=== PATIENT | female | born 1955 | race Caucasian/White ===

== ENCOUNTER 2018-10-10 12:03 | Inpatient (IN) | payer BC ==
[2018-10-10 13:07] LABS: ADD MAN DIFF? NO
[2018-10-10] MEDS: morphine 4 MG/ML VIAL IV (13:07)
[2018-10-10] MEDS: ONDANSETRON 4 MG INJ IV (13:07)
[2018-10-10 13:24] LABS: WHITE BLOOD COUNT 13.1 10^3/ul (4.8-10.8)
[2018-10-10 13:24] LABS: BASOPHILS % 0.2 % (0.0-2.0); EOSINOPHILS % 0.2 % (0.0-7.0); HEMATOCRIT 35.8 % (37.0-47.0); HEMOGLOBIN 11.4 g/dl (12.0-16.0); LYMPHOCYTES # 1.7 10^3/ul (0.8-2.9); MEAN CORPUSCULAR HEMOGLOBIN 27.6 pg (29.0-33.0); MEAN CORPUSCULAR HGB CONC 31.8 g/dl (32.0-37.0); MEAN CORPUSCULAR VOLUME 86.7 fl (82.0-101.0); MONOCYTE # 0.8 10^3/ul (0.3-0.9); MONOCYTES % 5.8 % (0.0-11.0); NEUTROPHIL # 10.5 10^3/ul (1.6-7.5); NEUTROPHILS % 80.3 % (39.0-77.0); PLATELET COUNT 336 10^3/UL (140-415); RED BLOOD COUNT 4.13 10^6/ul (4.20-5.40); RED CELL DISTRIBUTION WIDTH 13.8 % (11.5-14.5)
[2018-10-10 13:33] LABS: ALANINE AMINOTRANSFERASE 19 IU/L (13-69); ALBUMIN 3.8 g/dl (3.3-4.9); ALBUMIN/GLOBULIN RATIO 0.79; ALKALINE PHOSPHATASE 86 IU/L (42-121); ANION GAP 9 (5-13); ASPARTATE AMINO TRANSFERASE 40 IU/L (15-46); BILIRUBIN,INDIRECT 0.7 mg/dl (0-1.1); BILIRUBIN,TOTAL 0.7 mg/dl (0.2-1.3); BLOOD UREA NITROGEN 11 mg/dl (7-20); CALCIUM 8.9 mg/dl (8.4-10.2); CARBON DIOXIDE 29 mmol/L (21-31); CHLORIDE 99 mmol/L (97-110); CREATININE 0.62 mg/dl (0.44-1.00); Estimated GFR > 60 mL/min (>60); GLUCOSE 91 mg/dl (70-220); LIPASE 22 U/L (23-300); POTASSIUM 4.9 mmol/L (3.5-5.1); SODIUM 137 mmol/L (135-144); TOTAL PROTEIN 8.6 g/dl (6.1-8.1)
[2018-10-10] MEDS: PIPER-TAZO 3.375 GM IV (PMX) 100 ML IVPB (14:19)
[2018-10-10] MEDS ORDERED: ONDANSETRON 4 MG INJ IV (14:30)
[2018-10-10] MEDS ORDERED: ACETAMINOPHEN 325 MG TAB PO (14:30)
[2018-10-10] MEDS ORDERED: NACL 0.9% 3 ML SYG IV (17:00)
[2018-10-10] MEDS ORDERED: hydrALAzine 20 MG INJ IV (17:00)
[2018-10-10 17:09] LABS: HEMOGLOBIN A1C 5.6 % (0-5.9)
[2018-10-10] MEDS ORDERED: VANCOMYCIN IV PER PHARMACY XX (17:30)
[2018-10-10] MEDS: SOD CHLORIDE 0.9% 1,000 ML IV (17:54)
[2018-10-10 18:38] LABS: CARCINOEMBRYONIC ANTIGEN 1.7 ng/ml (0.0-5.0)
[2018-10-10] MEDS: ACETAMINOPHEN 1000MG/100ML IV 100 ML IVPB (21:05)
[2018-10-10] MEDS: VANCOMYCIN HCL 1.25 GM in SOD CHLORIDE 0.9% 250 ML IVPB ×2 (21:52→22:42)
[2018-10-10] MEDS: MEROPENEM 1 GM/50ML(PMX) 50 ML IVPB (22:00)
[2018-10-11] MEDS: SOD CHLORIDE 0.9% 1,000 ML IV ×3 (02:02→22:34)
[2018-10-11] MEDS: MEROPENEM 1 GM/50ML(PMX) 50 ML IVPB ×3 (05:49→22:34)
[2018-10-11 06:00] LABS: ADD MAN DIFF? NO
[2018-10-11 06:12] LABS: WHITE BLOOD COUNT 10.2 10^3/ul (4.8-10.8)
[2018-10-11 06:12] LABS: BASOPHILS % 0.3 % (0.0-2.0); EOSINOPHILS % 0.3 % (0.0-7.0); HEMATOCRIT 33.3 % (37.0-47.0); HEMOGLOBIN 10.6 g/dl (12.0-16.0); LYMPHOCYTES # 1.2 10^3/ul (0.8-2.9); LYMPHOCYTES % 12.1 % (15.0-51.0); MEAN CORPUSCULAR HGB CONC 31.8 g/dl (32.0-37.0); MEAN CORPUSCULAR VOLUME 84.7 fl (82.0-101.0); MEAN PLATELET VOLUME 9.6 fl (7.4-10.4); MONOCYTE # 0.8 10^3/ul (0.3-0.9); MONOCYTES % 7.5 % (0.0-11.0); NEUTROPHIL # 8.1 10^3/ul (1.6-7.5); NEUTROPHILS % 79.5 % (39.0-77.0); PLATELET COUNT 268 10^3/UL (140-415); RED BLOOD COUNT 3.93 10^6/ul (4.20-5.40)
[2018-10-11 06:23] LABS: INR 1.14; PROTIME 14.7 Sec (11.9-14.9); PT RATIO 1.1
[2018-10-11 06:24] LABS: PARTIAL THROMBOPLASTIN TIME 37.6 Sec (23.0-35.0)
[2018-10-11 06:31] LABS: ALANINE AMINOTRANSFERASE 21 IU/L (13-69); ALBUMIN 2.9 g/dl (3.3-4.9); ALBUMIN/GLOBULIN RATIO 0.78; ALKALINE PHOSPHATASE 78 IU/L (42-121); ANION GAP 8 (5-13); ASPARTATE AMINO TRANSFERASE 16 IU/L (15-46); BILIRUBIN,INDIRECT 0.6 mg/dl (0-1.1); BILIRUBIN,TOTAL 0.6 mg/dl (0.2-1.3); BLOOD UREA NITROGEN 7 mg/dl (7-20); CALCIUM 8.4 mg/dl (8.4-10.2); CARBON DIOXIDE 26 mmol/L (21-31); CHLORIDE 105 mmol/L (97-110); CREATININE 0.55 mg/dl (0.44-1.00); Estimated GFR > 60 mL/min (>60); GLUCOSE 96 mg/dl (70-220); POTASSIUM 3.8 mmol/L (3.5-5.1); SODIUM 139 mmol/L (135-144); TOTAL PROTEIN 6.6 g/dl (6.1-8.1)
[2018-10-11 06:41] LABS: PHOSPHORUS 3.8 mg/dl (2.5-4.9)
[2018-10-11 06:41] LABS: CHOL/HDL RATIO 7.9 RATIO; CHOLESTEROL 127 mg/dl (100-200); HDL CHOLESTEROL 16 mg/dl (35-98); LDL CHOLESTEROL,CALCULATED 90 mg/dl; MAGNESIUM 2.1 mg/dl (1.7-2.5); TRIGLYCERIDES 103 mg/dl (0-149)
[2018-10-11] MEDS: VANCOMYCIN 500 MG (PMX) 100 ML IVPB ×2 (09:20→20:21)
[2018-10-11] MEDS: ENOXAPARIN 40 MG/0.4 ML SYG SC (09:24)
[2018-10-11] MEDS: morphine 2 MG INJ IV ×2 (09:30→20:20)
[2018-10-12] MEDS: KETOROLAC 15 MG INJ IV (01:39)
[2018-10-12] MEDS: MEROPENEM 1 GM/50ML(PMX) 50 ML IVPB ×3 (05:39→21:37)
[2018-10-12 07:52] LABS: ADD MAN DIFF? NO
[2018-10-12 07:54] LABS: BASOPHILS % 0.3 % (0.0-2.0); EOSINOPHILS % 0.4 % (0.0-7.0); HEMOGLOBIN 10.5 g/dl (12.0-16.0); LYMPHOCYTES # 1.2 10^3/ul (0.8-2.9); MEAN CORPUSCULAR HEMOGLOBIN 26.9 pg (29.0-33.0); MEAN CORPUSCULAR HGB CONC 31.8 g/dl (32.0-37.0); MEAN CORPUSCULAR VOLUME 84.6 fl (82.0-101.0); MEAN PLATELET VOLUME 9.3 fl (7.4-10.4); MONOCYTE # 0.7 10^3/ul (0.3-0.9); MONOCYTES % 6.4 % (0.0-11.0); NEUTROPHIL # 8.6 10^3/ul (1.6-7.5); NEUTROPHILS % 81.6 % (39.0-77.0); PLATELET COUNT 305 10^3/UL (140-415)
[2018-10-12 07:54] LABS: WHITE BLOOD COUNT 10.5 10^3/ul (4.8-10.8)
[2018-10-12 09:09] LABS: MAGNESIUM 1.9 mg/dl (1.7-2.5)
[2018-10-12 09:09] LABS: PHOSPHORUS 3.4 mg/dl (2.5-4.9)
[2018-10-12 09:17] LABS: ANION GAP 11 (5-13); BLOOD UREA NITROGEN 8 mg/dl (7-20); CALCIUM 8.7 mg/dl (8.4-10.2); CARBON DIOXIDE 21 mmol/L (21-31); CHLORIDE 106 mmol/L (97-110); CREATININE 0.52 mg/dl (0.44-1.00); Estimated GFR > 60 mL/min (>60); GLUCOSE 71 mg/dl (70-220); POTASSIUM 3.7 mmol/L (3.5-5.1); SODIUM 138 mmol/L (135-144)
[2018-10-12 09:43] LABS: VANCOMYCIN,TROUGH 5.2 ug/ml (10.0-20.0)
[2018-10-12] MEDS: ENOXAPARIN 40 MG/0.4 ML SYG SC (10:04)
[2018-10-12] MEDS: SOD CHLORIDE 0.9% 1,000 ML IV ×3 (10:05→23:03)
[2018-10-12] MEDS: VANCOMYCIN 1 GM 250 ML IVPB (10:20)
[2018-10-12] MEDS: KETOROLAC 30 MG INJ IV (10:28)
[2018-10-13] MEDS: KETOROLAC 30 MG INJ IV (01:35)
[2018-10-13 06:02] LABS: ADD MAN DIFF? NO
[2018-10-13 06:04] LABS: BASOPHILS % 0.4 % (0.0-2.0); EOSINOPHILS # 0.1 10^3/ul (0.0-0.5); EOSINOPHILS % 1.9 % (0.0-7.0); HEMATOCRIT 33.6 % (37.0-47.0); HEMOGLOBIN 10.9 g/dl (12.0-16.0); LYMPHOCYTES # 1.1 10^3/ul (0.8-2.9); LYMPHOCYTES % 20.7 % (15.0-51.0); MEAN CORPUSCULAR HEMOGLOBIN 27.2 pg (29.0-33.0); MEAN CORPUSCULAR HGB CONC 32.4 g/dl (32.0-37.0); MEAN CORPUSCULAR VOLUME 83.8 fl (82.0-101.0); MEAN PLATELET VOLUME 9.4 fl (7.4-10.4); MONOCYTE # 0.4 10^3/ul (0.3-0.9); MONOCYTES % 7.7 % (0.0-11.0); NEUTROPHIL # 3.6 10^3/ul (1.6-7.5); NEUTROPHILS % 68.9 % (39.0-77.0); PLATELET COUNT 313 10^3/UL (140-415); RED BLOOD COUNT 4.01 10^6/ul (4.20-5.40); RED CELL DISTRIBUTION WIDTH 13.7 % (11.5-14.5)
[2018-10-13 06:04] LABS: WHITE BLOOD COUNT 5.2 10^3/ul (4.8-10.8)
[2018-10-13] MEDS: MEROPENEM 1 GM/50ML(PMX) 50 ML IVPB ×3 (06:22→21:44)
[2018-10-13 06:30] LABS: MAGNESIUM 1.8 mg/dl (1.7-2.5)
[2018-10-13 06:30] LABS: PHOSPHORUS 2.6 mg/dl (2.5-4.9)
[2018-10-13 06:33] LABS: ANION GAP 12 (5-13); BLOOD UREA NITROGEN 7 mg/dl (7-20); CALCIUM 8.6 mg/dl (8.4-10.2); CARBON DIOXIDE 21 mmol/L (21-31); CHLORIDE 106 mmol/L (97-110); CREATININE 0.46 mg/dl (0.44-1.00); Estimated GFR > 60 mL/min (>60); GLUCOSE 69 mg/dl (70-220); POTASSIUM 3.6 mmol/L (3.5-5.1); SODIUM 139 mmol/L (135-144)
[2018-10-13] MEDS: D5W-0.45 NACL + KCL 10 MEQ 1,000 ML IV (10:30)
[2018-10-13] MEDS: ENOXAPARIN 40 MG/0.4 ML SYG SC (10:36)
[2018-10-14] MEDS: D5W-0.45 NACL + KCL 10 MEQ 1,000 ML IV ×3 (00:20→12:12)
[2018-10-14 05:37] LABS: ADD MAN DIFF? NO
[2018-10-14 05:39] LABS: WHITE BLOOD COUNT 3.6 10^3/ul (4.8-10.8)
[2018-10-14 05:39] LABS: BASOPHILS % 0.6 % (0.0-2.0); EOSINOPHILS # 0.1 10^3/ul (0.0-0.5); EOSINOPHILS % 2.5 % (0.0-7.0); HEMATOCRIT 33.3 % (37.0-47.0); LYMPHOCYTES # 0.8 10^3/ul (0.8-2.9); LYMPHOCYTES % 21.8 % (15.0-51.0); MEAN CORPUSCULAR HEMOGLOBIN 27.2 pg (29.0-33.0); MEAN CORPUSCULAR VOLUME 82.4 fl (82.0-101.0); MEAN PLATELET VOLUME 9.4 fl (7.4-10.4); MONOCYTE # 0.3 10^3/ul (0.3-0.9); MONOCYTES % 8.6 % (0.0-11.0); NEUTROPHIL # 2.4 10^3/ul (1.6-7.5); NEUTROPHILS % 65.9 % (39.0-77.0); PLATELET COUNT 322 10^3/UL (140-415); RED BLOOD COUNT 4.04 10^6/ul (4.20-5.40); RED CELL DISTRIBUTION WIDTH 13.3 % (11.5-14.5)
[2018-10-14] MEDS: MEROPENEM 1 GM/50ML(PMX) 50 ML IVPB ×3 (05:57→21:36)
[2018-10-14 05:59] LABS: ANION GAP 8 (5-13); BLOOD UREA NITROGEN 5 mg/dl (7-20); CALCIUM 8.7 mg/dl (8.4-10.2); CARBON DIOXIDE 27 mmol/L (21-31); CHLORIDE 103 mmol/L (97-110); CREATININE 0.42 mg/dl (0.44-1.00); Estimated GFR > 60 mL/min (>60); GLUCOSE 120 mg/dl (70-220); POTASSIUM 3.4 mmol/L (3.5-5.1); SODIUM 138 mmol/L (135-144)
[2018-10-14 06:12] LABS: MAGNESIUM 1.7 mg/dl (1.7-2.5)
[2018-10-14 06:12] LABS: PHOSPHORUS 2.5 mg/dl (2.5-4.9)
[2018-10-14] MEDS: ENOXAPARIN 40 MG/0.4 ML SYG SC (08:08)
[2018-10-14] MEDS: KETOROLAC 30 MG INJ IV ×2 (08:09→15:00)
[2018-10-14] MEDS: POTASSIUM CHLORIDE 20 MEQ POWDER FOR ORAL SOLN PO (12:12)
[2018-10-14] MEDS: MAGNESIUM SULFATE 2 GM/50 ML 50 ML IVPB (12:52)
[2018-10-15] MEDS: D5W-0.45 NACL + KCL 10 MEQ 1,000 ML IV ×3 (02:07→20:10)
[2018-10-15] MEDS: MEROPENEM 1 GM/50ML(PMX) 50 ML IVPB ×3 (05:34→21:26)
[2018-10-15] MEDS: KETOROLAC 30 MG INJ IV (05:35)
[2018-10-15 07:44] LABS: HEMOGLOBIN 11.4 g/dl (12.0-16.0); MEAN CORPUSCULAR HEMOGLOBIN 26.6 pg (29.0-33.0); MEAN CORPUSCULAR HGB CONC 32.6 g/dl (32.0-37.0); MEAN CORPUSCULAR VOLUME 81.6 fl (82.0-101.0); MEAN PLATELET VOLUME 9.2 fl (7.4-10.4); PLATELET COUNT 285 10^3/UL (140-415); RED BLOOD COUNT 4.29 10^6/ul (4.20-5.40); RED CELL DISTRIBUTION WIDTH 13.8 % (11.5-14.5)
[2018-10-15 07:44] LABS: WHITE BLOOD COUNT 2.7 10^3/ul (4.8-10.8)
[2018-10-15 07:51] LABS: ADD MAN DIFF? YES; POSITIVE DIFF @See below
[2018-10-15 08:02] LABS: PHOSPHORUS 2.5 mg/dl (2.5-4.9)
[2018-10-15 08:02] LABS: MAGNESIUM 2.3 mg/dl (1.7-2.5)
[2018-10-15 08:07] LABS: ANION GAP 6 (5-13); BLOOD UREA NITROGEN 4 mg/dl (7-20); CALCIUM 8.5 mg/dl (8.4-10.2); CARBON DIOXIDE 30 mmol/L (21-31); CHLORIDE 102 mmol/L (97-110); CREATININE 0.53 mg/dl (0.44-1.00); Estimated GFR > 60 mL/min (>60); GLUCOSE 122 mg/dl (70-220); POTASSIUM 3.9 mmol/L (3.5-5.1); SODIUM 138 mmol/L (135-144)
[2018-10-15] MEDS: ENOXAPARIN 40 MG/0.4 ML SYG SC (09:00)
[2018-10-15 10:15] LABS: BAND NEUTROPHILS % (M) 2 % (0-4); BASOPHILS % (M) 1 % (0-2); EOSINOPHILS % (M) 2 % (0-7); LYMPHOCYTES #M 0.4 10^3/ul (0.8-2.9); LYMPHOCYTES % (M) 18 % (15-51); MONOCYTE #M 0.2 10^3/ul (0.3-0.9); MONOCYTES % (M) 8 % (0-11); PLASMAC%(M) 1 % (0); PLATELET ESTIMATE NORMAL; REACTIVE LYMPHOCYTES% (M) 2 % (0-0); SEG NEUT #M 1.8 10^3/ul (1.6-7.5); SEGMENTED NEUTROPHILS (M) % 66 % (39-77); SMUDGE%M 50 % (0-0)
[2018-10-15] MEDS ORDERED: ATORVASTATIN 20 MG TAB (19:51)
[2018-10-15] MEDS: ATORVASTATIN 20 MG TAB PO (20:07)
[2018-10-16] MEDS: D5W-0.45 NACL + KCL 10 MEQ 1,000 ML IV (01:17)
[2018-10-16] MEDS: MEROPENEM 1 GM/50ML(PMX) 50 ML IVPB ×3 (05:31→22:17)
[2018-10-16 06:16] LABS: ABNORMAL IP MESSAGE 1; HEMATOCRIT 34.8 % (37.0-47.0); MEAN CORPUSCULAR HEMOGLOBIN 26.6 pg (29.0-33.0); MEAN CORPUSCULAR HGB CONC 31.6 g/dl (32.0-37.0); MEAN CORPUSCULAR VOLUME 84.3 fl (82.0-101.0); MEAN PLATELET VOLUME 9.4 fl (7.4-10.4); PLATELET COUNT 314 10^3/UL (140-415); RED BLOOD COUNT 4.13 10^6/ul (4.20-5.40); RED CELL DISTRIBUTION WIDTH 13.9 % (11.5-14.5)
[2018-10-16 06:16] LABS: WHITE BLOOD COUNT 2.3 10^3/ul (4.8-10.8)
[2018-10-16 06:21] LABS: ADD MAN DIFF? YES; POSITIVE DIFF @See below
[2018-10-16 06:55] LABS: MAGNESIUM 2.2 mg/dl (1.7-2.5)
[2018-10-16 07:04] LABS: ANION GAP 5 (5-13); BLOOD UREA NITROGEN 3 mg/dl (7-20); CALCIUM 9.1 mg/dl (8.4-10.2); CARBON DIOXIDE 30 mmol/L (21-31); CHLORIDE 104 mmol/L (97-110); CREATININE 0.49 mg/dl (0.44-1.00); Estimated GFR > 60 mL/min (>60); GLUCOSE 111 mg/dl (70-220); POTASSIUM 4.1 mmol/L (3.5-5.1); SODIUM 139 mmol/L (135-144)
[2018-10-16 08:29] LABS: ANISOCYTOSIS 1+ (0-0); EOSINOPHILS % (M) 1 % (0-7); LYMPHOCYTES % (M) 47 % (15-51); MONOCYTE #M 0.2 10^3/ul (0.3-0.9); MONOCYTES % (M) 12 % (0-11); PLATELET ESTIMATE NORMAL; POLYCHROMASIA 1+ (0-0); REACTIVE LYMPHOCYTES% (M) 2 % (0-0); SEGMENTED NEUTROPHILS (M) % 38 % (39-77); SMUDGE%M 17 % (0-0)
[2018-10-16] MEDS: ENOXAPARIN 40 MG/0.4 ML SYG SC (09:25)
[2018-10-16] MEDS: KETOROLAC 30 MG INJ IV (15:43)
[2018-10-16] MEDS: ATORVASTATIN 20 MG TAB PO (22:17)
[2018-10-17] MEDS: MEROPENEM 1 GM/50ML(PMX) 50 ML IVPB (05:25)
[2018-10-17 06:02] LABS: ADD MAN DIFF? NO
[2018-10-17 06:12] LABS: ABNORMAL IP MESSAGE 1; BASOPHILS % 0.8 % (0.0-2.0); EOSINOPHILS # 0.1 10^3/ul (0.0-0.5); EOSINOPHILS % 4.9 % (0.0-7.0); HEMATOCRIT 35.9 % (37.0-47.0); HEMOGLOBIN 11.4 g/dl (12.0-16.0); LYMPHOCYTES # 1.5 10^3/ul (0.8-2.9); LYMPHOCYTES % 55.6 % (15.0-51.0); MEAN CORPUSCULAR HEMOGLOBIN 26.8 pg (29.0-33.0); MEAN CORPUSCULAR HGB CONC 31.8 g/dl (32.0-37.0); MEAN CORPUSCULAR VOLUME 84.3 fl (82.0-101.0); MEAN PLATELET VOLUME 9.6 fl (7.4-10.4); MONOCYTE # 0.4 10^3/ul (0.3-0.9); MONOCYTES % 14.3 % (0.0-11.0); NEUTROPHIL # 0.6 10^3/ul (1.6-7.5); PLATELET COUNT 318 10^3/UL (140-415); RED BLOOD COUNT 4.26 10^6/ul (4.20-5.40); RED CELL DISTRIBUTION WIDTH 13.8 % (11.5-14.5)
[2018-10-17 06:12] LABS: WHITE BLOOD COUNT 2.7 10^3/ul (4.8-10.8)
[2018-10-17 06:15] LABS: POSITIVE DIFF @See below
[2018-10-17 06:27] LABS: ANION GAP 5 (5-13); BLOOD UREA NITROGEN 5 mg/dl (7-20); CALCIUM 9.1 mg/dl (8.4-10.2); CARBON DIOXIDE 32 mmol/L (21-31); CHLORIDE 103 mmol/L (97-110); CREATININE 0.46 mg/dl (0.44-1.00); Estimated GFR > 60 mL/min (>60); GLUCOSE 93 mg/dl (70-220); POTASSIUM 4.3 mmol/L (3.5-5.1); SODIUM 140 mmol/L (135-144)
[2018-10-17 06:33] LABS: MAGNESIUM 2.2 mg/dl (1.7-2.5)
[2018-10-17 06:33] LABS: PHOSPHORUS 3.4 mg/dl (2.5-4.9)
[2018-10-17] MEDS: ENOXAPARIN 40 MG/0.4 ML SYG SC (08:50)
[2018-10-17] MEDS: metroNIDAZOLE 500 MG/NS (PMX) 100 ML IVPB ×2 (14:07→22:08)
[2018-10-17] MEDS: HYDROCODONE/APAP (7.5/325) TAB NGT (18:47)
[2018-10-17] MEDS: CIPROFLOXACIN 400MG/D5W 200 ML IVPB (21:07)
[2018-10-17] MEDS: ATORVASTATIN 20 MG TAB PO (21:08)
[2018-10-18] MEDS: metroNIDAZOLE 500 MG/NS (PMX) 100 ML IVPB ×3 (05:51→22:11)
[2018-10-18] MEDS: HYDROCODONE/APAP (7.5/325) TAB NGT (05:55)
[2018-10-18] MEDS: ENOXAPARIN 40 MG/0.4 ML SYG SC (09:11)
[2018-10-18] MEDS: CIPROFLOXACIN 400MG/D5W 200 ML IVPB ×2 (09:40→20:43)
[2018-10-18 10:50] LABS: ADD MAN DIFF? NO
[2018-10-18 10:56] LABS: WHITE BLOOD COUNT 6.1 10^3/ul (4.8-10.8)
[2018-10-18 10:56] LABS: BASOPHILS % 0.3 % (0.0-2.0); EOSINOPHILS # 0.1 10^3/ul (0.0-0.5); EOSINOPHILS % 1.2 % (0.0-7.0); HEMATOCRIT 36.7 % (37.0-47.0); HEMOGLOBIN 11.5 g/dl (12.0-16.0); LYMPHOCYTES # 1.5 10^3/ul (0.8-2.9); MEAN CORPUSCULAR HEMOGLOBIN 26.9 pg (29.0-33.0); MEAN CORPUSCULAR HGB CONC 31.3 g/dl (32.0-37.0); MEAN CORPUSCULAR VOLUME 85.9 fl (82.0-101.0); MEAN PLATELET VOLUME 9.3 fl (7.4-10.4); MONOCYTE # 0.4 10^3/ul (0.3-0.9); MONOCYTES % 6.6 % (0.0-11.0); NEUTROPHIL # 4.1 10^3/ul (1.6-7.5); NEUTROPHILS % 67.6 % (39.0-77.0); PLATELET COUNT 336 10^3/UL (140-415); RED BLOOD COUNT 4.27 10^6/ul (4.20-5.40)
[2018-10-18 11:11] LABS: ANION GAP 9 (5-13); BLOOD UREA NITROGEN 8 mg/dl (7-20); CALCIUM 9.4 mg/dl (8.4-10.2); CARBON DIOXIDE 30 mmol/L (21-31); CHLORIDE 97 mmol/L (97-110); CREATININE 0.58 mg/dl (0.44-1.00); Estimated GFR > 60 mL/min (>60); GLUCOSE 147 mg/dl (70-220); POTASSIUM 3.8 mmol/L (3.5-5.1); SODIUM 136 mmol/L (135-144)
[2018-10-18] MEDS: ATORVASTATIN 20 MG TAB PO (20:44)
[2018-10-18] MEDS: ONDANSETRON 4 MG INJ IV (22:39)
[2018-10-19] MEDS: metroNIDAZOLE 500 MG/NS (PMX) 100 ML IVPB ×3 (05:34→21:51)
[2018-10-19 06:22] LABS: ADD MAN DIFF? NO
[2018-10-19 06:26] LABS: BASOPHILS % 0.2 % (0.0-2.0); HEMATOCRIT 36.8 % (37.0-47.0); HEMOGLOBIN 11.9 g/dl (12.0-16.0); LYMPHOCYTES # 0.9 10^3/ul (0.8-2.9); LYMPHOCYTES % 5.2 % (15.0-51.0); MEAN CORPUSCULAR HEMOGLOBIN 26.9 pg (29.0-33.0); MEAN CORPUSCULAR HGB CONC 32.3 g/dl (32.0-37.0); MEAN CORPUSCULAR VOLUME 83.3 fl (82.0-101.0); MEAN PLATELET VOLUME 9.9 fl (7.4-10.4); MONOCYTE # 0.5 10^3/ul (0.3-0.9); NEUTROPHIL # 15.6 10^3/ul (1.6-7.5); PLATELET COUNT 338 10^3/UL (140-415); RED BLOOD COUNT 4.42 10^6/ul (4.20-5.40); RED CELL DISTRIBUTION WIDTH 13.8 % (11.5-14.5)
[2018-10-19 06:26] LABS: WHITE BLOOD COUNT 17.2 10^3/ul (4.8-10.8)
[2018-10-19 06:51] LABS: ANION GAP 12 (5-13); BLOOD UREA NITROGEN 7 mg/dl (7-20); CARBON DIOXIDE 27 mmol/L (21-31); CHLORIDE 101 mmol/L (97-110); CREATININE 0.63 mg/dl (0.44-1.00); Estimated GFR > 60 mL/min (>60); GLUCOSE 119 mg/dl (70-220); POTASSIUM 4.1 mmol/L (3.5-5.1); SODIUM 140 mmol/L (135-144)
[2018-10-19] MEDS: CIPROFLOXACIN 400MG/D5W 200 ML IVPB (09:17)
[2018-10-19] MEDS: ENOXAPARIN 40 MG/0.4 ML SYG SC (09:17)
[2018-10-19] MEDS: SOD CHLORIDE 0.9% 500 ML IV (15:59)
[2018-10-19] MEDS: SOD CHLORIDE 0.9% 1,000 ML IV (17:15)
[2018-10-19] MEDS: CEFEPIME 1GM/50 ML (PMX) 50 ML IVPB (20:17)
[2018-10-19] MEDS: ATORVASTATIN 20 MG TAB PO (20:18)
[2018-10-19] MEDS: VANCOMYCIN HCL 250 MG/5ML POSYG PO (20:23)
[2018-10-20] MEDS: VANCOMYCIN HCL 250 MG/5ML POSYG PO ×4 (00:14→18:29)
[2018-10-20] MEDS: metroNIDAZOLE 500 MG/NS (PMX) 100 ML IVPB ×3 (05:22→21:41)
[2018-10-20] MEDS: SOD CHLORIDE 0.9% 1,000 ML IV ×2 (05:22→17:30)
[2018-10-20 05:30] LABS: ADD MAN DIFF? NO
[2018-10-20 05:35] LABS: WHITE BLOOD COUNT 9.1 10^3/ul (4.8-10.8)
[2018-10-20 05:35] LABS: BASOPHILS % 0.2 % (0.0-2.0); EOSINOPHILS % 0.2 % (0.0-7.0); HEMATOCRIT 30.8 % (37.0-47.0); HEMOGLOBIN 9.8 g/dl (12.0-16.0); LYMPHOCYTES # 1.2 10^3/ul (0.8-2.9); LYMPHOCYTES % 12.9 % (15.0-51.0); MEAN CORPUSCULAR HEMOGLOBIN 26.8 pg (29.0-33.0); MEAN CORPUSCULAR HGB CONC 31.8 g/dl (32.0-37.0); MEAN CORPUSCULAR VOLUME 84.2 fl (82.0-101.0); MEAN PLATELET VOLUME 10.1 fl (7.4-10.4); MONOCYTE # 0.6 10^3/ul (0.3-0.9); MONOCYTES % 6.1 % (0.0-11.0); NEUTROPHIL # 7.3 10^3/ul (1.6-7.5); PLATELET COUNT 257 10^3/UL (140-415); RED BLOOD COUNT 3.66 10^6/ul (4.20-5.40); RED CELL DISTRIBUTION WIDTH 14.3 % (11.5-14.5)
[2018-10-20 05:57] LABS: ANION GAP 7 (5-13); BLOOD UREA NITROGEN 7 mg/dl (7-20); CALCIUM 8.3 mg/dl (8.4-10.2); CARBON DIOXIDE 26 mmol/L (21-31); CHLORIDE 104 mmol/L (97-110); CREATININE 0.54 mg/dl (0.44-1.00); Estimated GFR > 60 mL/min (>60); GLUCOSE 90 mg/dl (70-220); POTASSIUM 3.6 mmol/L (3.5-5.1); SODIUM 137 mmol/L (135-144)
[2018-10-20 06:05] LABS: ALANINE AMINOTRANSFERASE 37 IU/L (13-69); ALKALINE PHOSPHATASE 74 IU/L (42-121); ASPARTATE AMINO TRANSFERASE 55 IU/L (15-46); MAGNESIUM 1.8 mg/dl (1.7-2.5); TRIGLYCERIDES 93 mg/dl (0-149)
[2018-10-20 06:05] LABS: PHOSPHORUS 2.6 mg/dl (2.5-4.9)
[2018-10-20 07:58] LABS: PREALBUMIN 7.9 mg/dl (17.6-36.0)
[2018-10-20] MEDS: CEFEPIME 1GM/50 ML (PMX) 50 ML IVPB ×2 (09:50→20:45)
[2018-10-20] MEDS: ENOXAPARIN 40 MG/0.4 ML SYG SC (09:51)
[2018-10-20] MEDS: ACCU-CHEK XX ×3 (13:00→20:51)
[2018-10-20 15:50] LABS: ALANINE AMINOTRANSFERASE 40 IU/L (13-69); ALBUMIN 2.7 g/dl (3.3-4.9); ALBUMIN/GLOBULIN RATIO 0.79; ALKALINE PHOSPHATASE 85 IU/L (42-121); ANION GAP 4 (5-13); ASPARTATE AMINO TRANSFERASE 65 IU/L (15-46); BILIRUBIN,INDIRECT 0.4 mg/dl (0-1.1); BILIRUBIN,TOTAL 0.4 mg/dl (0.2-1.3); BLOOD UREA NITROGEN 6 mg/dl (7-20); CALCIUM 8.3 mg/dl (8.4-10.2); CARBON DIOXIDE 27 mmol/L (21-31); CHLORIDE 105 mmol/L (97-110); CREATININE 0.47 mg/dl (0.44-1.00); Estimated GFR > 60 mL/min (>60); GLUCOSE 113 mg/dl (70-220); MAGNESIUM 1.8 mg/dl (1.7-2.5); PHOSPHORUS 2.2 mg/dl (2.5-4.9); POTASSIUM 3.4 mmol/L (3.5-5.1); SODIUM 136 mmol/L (135-144); TOTAL PROTEIN 6.1 g/dl (6.1-8.1); TRIGLYCERIDES 120 mg/dl (0-149)
[2018-10-20 15:57] LABS: PREALBUMIN 7.5 mg/dl (17.6-36.0)
[2018-10-20] MEDS ORDERED: TPN 1,000 ML IV (17:00)
[2018-10-20] MEDS: ATORVASTATIN 20 MG TAB PO (20:45)
[2018-10-20] MEDS: TPN 1,000 ML IV (21:57)
[2018-10-21] MEDS: VANCOMYCIN HCL 250 MG/5ML POSYG PO ×5 (00:16→23:12)
[2018-10-21] MEDS: ACCU-CHEK XX ×6 (00:35→23:12)
[2018-10-21] MEDS: metroNIDAZOLE 500 MG/NS (PMX) 100 ML IVPB ×3 (04:55→21:05)
[2018-10-21 05:59] LABS: ADD MAN DIFF? NO
[2018-10-21 06:07] LABS: BASOPHILS % 0.3 % (0.0-2.0); EOSINOPHILS % 0.4 % (0.0-7.0); HEMATOCRIT 31.3 % (37.0-47.0); HEMOGLOBIN 9.9 g/dl (12.0-16.0); LYMPHOCYTES # 1.2 10^3/ul (0.8-2.9); LYMPHOCYTES % 18.1 % (15.0-51.0); MEAN CORPUSCULAR HEMOGLOBIN 26.7 pg (29.0-33.0); MEAN CORPUSCULAR HGB CONC 31.6 g/dl (32.0-37.0); MEAN CORPUSCULAR VOLUME 84.4 fl (82.0-101.0); MEAN PLATELET VOLUME 9.9 fl (7.4-10.4); MONOCYTE # 0.6 10^3/ul (0.3-0.9); MONOCYTES % 8.5 % (0.0-11.0); NEUTROPHIL # 4.9 10^3/ul (1.6-7.5); NEUTROPHILS % 72.4 % (39.0-77.0); PLATELET COUNT 260 10^3/UL (140-415); RED BLOOD COUNT 3.71 10^6/ul (4.20-5.40); RED CELL DISTRIBUTION WIDTH 14.2 % (11.5-14.5)
[2018-10-21 06:07] LABS: WHITE BLOOD COUNT 6.8 10^3/ul (4.8-10.8)
[2018-10-21 06:27] LABS: ANION GAP 5 (5-13); BLOOD UREA NITROGEN 6 mg/dl (7-20); CALCIUM 8.2 mg/dl (8.4-10.2); CARBON DIOXIDE 28 mmol/L (21-31); CHLORIDE 107 mmol/L (97-110); CREATININE 0.41 mg/dl (0.44-1.00); Estimated GFR > 60 mL/min (>60); GLUCOSE 123 mg/dl (70-220); POTASSIUM 3.6 mmol/L (3.5-5.1); SODIUM 140 mmol/L (135-144)
[2018-10-21 06:38] LABS: PHOSPHORUS 2.1 mg/dl (2.5-4.9)
[2018-10-21] MEDS: TPN 1,000 ML IV ×2 (09:03→21:05)
[2018-10-21] MEDS: CEFEPIME 1GM/50 ML (PMX) 50 ML IVPB ×2 (09:03→20:38)
[2018-10-21] MEDS: ENOXAPARIN 40 MG/0.4 ML SYG SC (09:06)
[2018-10-21] MEDS: POTASSIUM PHOSPHATE 15 MM in SOD CHLORIDE 0.9% 250 ML IV (12:28)
[2018-10-21] MEDS: ATORVASTATIN 20 MG TAB PO (20:38)
[2018-10-21] MEDS: ACETAMINOPHEN 325 MG TAB PO (20:39)
[2018-10-22] MEDS: metroNIDAZOLE 500 MG/NS (PMX) 100 ML IVPB ×3 (05:33→21:50)
[2018-10-22] MEDS: VANCOMYCIN HCL 250 MG/5ML POSYG PO ×3 (05:34→17:40)
[2018-10-22] MEDS: ACCU-CHEK XX ×4 (05:34→23:58)
[2018-10-22 05:43] LABS: ADD MAN DIFF? NO
[2018-10-22 05:45] LABS: BASOPHILS % 0.2 % (0.0-2.0); EOSINOPHILS # 0.1 10^3/ul (0.0-0.5); EOSINOPHILS % 1.6 % (0.0-7.0); HEMOGLOBIN 10.3 g/dl (12.0-16.0); LYMPHOCYTES # 1.3 10^3/ul (0.8-2.9); LYMPHOCYTES % 30.6 % (15.0-51.0); MEAN CORPUSCULAR HEMOGLOBIN 26.8 pg (29.0-33.0); MEAN CORPUSCULAR HGB CONC 32.2 g/dl (32.0-37.0); MEAN CORPUSCULAR VOLUME 83.1 fl (82.0-101.0); MEAN PLATELET VOLUME 10.1 fl (7.4-10.4); MONOCYTE # 0.4 10^3/ul (0.3-0.9); MONOCYTES % 8.8 % (0.0-11.0); NEUTROPHIL # 2.5 10^3/ul (1.6-7.5); NEUTROPHILS % 58.6 % (39.0-77.0); PLATELET COUNT 323 10^3/UL (140-415); RED BLOOD COUNT 3.85 10^6/ul (4.20-5.40); RED CELL DISTRIBUTION WIDTH 14.3 % (11.5-14.5)
[2018-10-22 05:45] LABS: WHITE BLOOD COUNT 4.3 10^3/ul (4.8-10.8)
[2018-10-22 06:11] LABS: ANION GAP 4 (5-13); BLOOD UREA NITROGEN 7 mg/dl (7-20); CALCIUM 8.7 mg/dl (8.4-10.2); CARBON DIOXIDE 29 mmol/L (21-31); CHLORIDE 107 mmol/L (97-110); Estimated GFR > 60 mL/min (>60); GLUCOSE 104 mg/dl (70-220); POTASSIUM 3.6 mmol/L (3.5-5.1); SODIUM 140 mmol/L (135-144)
[2018-10-22 06:35] LABS: PHOSPHORUS 3.2 mg/dl (2.5-4.9)
[2018-10-22] MEDS: CEFEPIME 1GM/50 ML (PMX) 50 ML IVPB ×2 (09:23→20:25)
[2018-10-22] MEDS: TPN 1,000 ML IV ×2 (09:23→23:39)
[2018-10-22] MEDS: ENOXAPARIN 40 MG/0.4 ML SYG SC (09:24)
[2018-10-22] MEDS: ACETAMINOPHEN 325 MG TAB PO (15:09)
[2018-10-22] MEDS: POTASSIUM CHLORIDE 20 MEQ /SW 100 ML IVPB (15:30)
[2018-10-22] MEDS: ATORVASTATIN 20 MG TAB PO (20:25)
[2018-10-23] MEDS: VANCOMYCIN HCL 250 MG/5ML POSYG PO ×4 (00:07→17:41)
[2018-10-23] MEDS: ACETAMINOPHEN 325 MG TAB PO (00:12)
[2018-10-23] MEDS: metroNIDAZOLE 500 MG/NS (PMX) 100 ML IVPB ×3 (05:09→22:15)
[2018-10-23] MEDS: ACCU-CHEK XX ×2 (05:24→12:00)
[2018-10-23 06:09] LABS: ADD MAN DIFF? NO
[2018-10-23 06:12] LABS: WHITE BLOOD COUNT 3.9 10^3/ul (4.8-10.8)
[2018-10-23 06:12] LABS: BASOPHILS % 0.8 % (0.0-2.0); EOSINOPHILS # 0.1 10^3/ul (0.0-0.5); HEMATOCRIT 34.1 % (37.0-47.0); HEMOGLOBIN 10.9 g/dl (12.0-16.0); LYMPHOCYTES # 1.5 10^3/ul (0.8-2.9); LYMPHOCYTES % 38.3 % (15.0-51.0); MEAN CORPUSCULAR HEMOGLOBIN 26.4 pg (29.0-33.0); MEAN CORPUSCULAR VOLUME 82.6 fl (82.0-101.0); MONOCYTE # 0.5 10^3/ul (0.3-0.9); NEUTROPHIL # 1.8 10^3/ul (1.6-7.5); NEUTROPHILS % 46.6 % (39.0-77.0); PLATELET COUNT 339 10^3/UL (140-415); RED BLOOD COUNT 4.13 10^6/ul (4.20-5.40); RED CELL DISTRIBUTION WIDTH 14.5 % (11.5-14.5)
[2018-10-23 06:23] LABS: POSITIVE DIFF @See below
[2018-10-23 07:00] LABS: PHOSPHORUS 3.5 mg/dl (2.5-4.9)
[2018-10-23 07:05] LABS: ANION GAP 7 (5-13); BLOOD UREA NITROGEN 10 mg/dl (7-20); CALCIUM 9.1 mg/dl (8.4-10.2); CARBON DIOXIDE 26 mmol/L (21-31); CHLORIDE 106 mmol/L (97-110); CREATININE 0.41 mg/dl (0.44-1.00); Estimated GFR > 60 mL/min (>60); GLUCOSE 117 mg/dl (70-220); SODIUM 139 mmol/L (135-144)
[2018-10-23] MEDS: CEFEPIME 1GM/50 ML (PMX) 50 ML IVPB ×2 (09:50→21:12)
[2018-10-23] MEDS: ENOXAPARIN 40 MG/0.4 ML SYG SC (09:54)
[2018-10-23] MEDS: TPN 1,000 ML IV (12:45)
[2018-10-23] MEDS: ATORVASTATIN 20 MG TAB PO (21:12)
[2018-10-24] MEDS: VANCOMYCIN HCL 250 MG/5ML POSYG PO ×4 (00:03→17:20)
[2018-10-24] MEDS: TPN 1,000 ML IV ×2 (02:14→15:54)
[2018-10-24] MEDS: metroNIDAZOLE 500 MG/NS (PMX) 100 ML IVPB ×3 (06:03→22:32)
[2018-10-24 06:22] LABS: HEMATOCRIT 35.5 % (37.0-47.0); HEMOGLOBIN 11.3 g/dl (12.0-16.0); MEAN CORPUSCULAR HEMOGLOBIN 26.1 pg (29.0-33.0); MEAN CORPUSCULAR HGB CONC 31.8 g/dl (32.0-37.0); MEAN PLATELET VOLUME 10.1 fl (7.4-10.4); PLATELET COUNT 334 10^3/UL (140-415); RED BLOOD COUNT 4.33 10^6/ul (4.20-5.40); RED CELL DISTRIBUTION WIDTH 14.3 % (11.5-14.5)
[2018-10-24 06:22] LABS: WHITE BLOOD COUNT 3.7 10^3/ul (4.8-10.8)
[2018-10-24 06:30] LABS: ADD MAN DIFF? YES; POSITIVE DIFF @See below
[2018-10-24 06:44] LABS: ANION GAP 7 (5-13); BLOOD UREA NITROGEN 13 mg/dl (7-20); CALCIUM 9.3 mg/dl (8.4-10.2); CARBON DIOXIDE 28 mmol/L (21-31); CHLORIDE 105 mmol/L (97-110); CREATININE 0.48 mg/dl (0.44-1.00); Estimated GFR > 60 mL/min (>60); GLUCOSE 112 mg/dl (70-220); POTASSIUM 4.3 mmol/L (3.5-5.1); SODIUM 140 mmol/L (135-144)
[2018-10-24] MEDS: CEFEPIME 1GM/50 ML (PMX) 50 ML IVPB ×2 (08:27→21:12)
[2018-10-24] MEDS: ENOXAPARIN 40 MG/0.4 ML SYG SC (08:28)
[2018-10-24] MEDS: ACETAMINOPHEN 325 MG TAB PO (08:41)
[2018-10-24 09:30] LABS: ANISOCYTOSIS 1+ (0-0); EOSINOPHILS % (M) 2 % (0-7); GIANT THROMBO% (M) 5 % (0-0); LYMPHOCYTES #M 1.7 10^3/ul (0.8-2.9); LYMPHOCYTES % (M) 48 % (15-51); MICROCYTOSIS 1+ (0-0); MONOCYTE #M 0.2 10^3/ul (0.3-0.9); MONOCYTES % (M) 6 % (0-11); PLATELET ESTIMATE NORMAL; POLYCHROMASIA 1+ (0-0); REACTIVE LYMPHOCYTES #M 0.3 10^3/ul (0.0-0.0); REACTIVE LYMPHOCYTES% (M) 9 % (0-0); SEGMENTED NEUTROPHILS (M) % 35 % (39-77); SMUDGE%M 10 % (0-0)
[2018-10-24] MEDS: ACCU-CHEK XX ×2 (11:42)
[2018-10-24] MEDS: FAT EMULSION 20% 250 ML IV (15:54)
[2018-10-24] MEDS: ATORVASTATIN 20 MG TAB PO (21:12)
[2018-10-25] MEDS: VANCOMYCIN HCL 250 MG/5ML POSYG PO ×3 (00:05→12:10)
[2018-10-25] MEDS: TPN 1,000 ML IV ×2 (05:13→18:15)
[2018-10-25] MEDS: metroNIDAZOLE 500 MG/NS (PMX) 100 ML IVPB ×3 (05:23→21:47)
[2018-10-25 06:15] LABS: HEMATOCRIT 36.8 % (37.0-47.0); HEMOGLOBIN 11.6 g/dl (12.0-16.0); MEAN CORPUSCULAR HEMOGLOBIN 26.4 pg (29.0-33.0); MEAN CORPUSCULAR HGB CONC 31.5 g/dl (32.0-37.0); MEAN CORPUSCULAR VOLUME 83.8 fl (82.0-101.0); MEAN PLATELET VOLUME 9.7 fl (7.4-10.4); PLATELET COUNT 344 10^3/UL (140-415); RED BLOOD COUNT 4.39 10^6/ul (4.20-5.40); RED CELL DISTRIBUTION WIDTH 14.3 % (11.5-14.5)
[2018-10-25 06:15] LABS: WHITE BLOOD COUNT 3.9 10^3/ul (4.8-10.8)
[2018-10-25 06:25] LABS: ADD MAN DIFF? YES; POSITIVE DIFF @See below
[2018-10-25 06:50] LABS: PHOSPHORUS 3.9 mg/dl (2.5-4.9)
[2018-10-25 06:51] LABS: ALANINE AMINOTRANSFERASE 32 IU/L (13-69); ALBUMIN 3.6 g/dl (3.3-4.9); ALBUMIN/GLOBULIN RATIO 0.97; ALKALINE PHOSPHATASE 74 IU/L (42-121); ANION GAP 10 (5-13); ASPARTATE AMINO TRANSFERASE 59 IU/L (15-46); BILIRUBIN,INDIRECT 0.3 mg/dl (0-1.1); BILIRUBIN,TOTAL 0.3 mg/dl (0.2-1.3); BLOOD UREA NITROGEN 13 mg/dl (7-20); CALCIUM 9.7 mg/dl (8.4-10.2); CARBON DIOXIDE 24 mmol/L (21-31); CHLORIDE 107 mmol/L (97-110); CREATININE 0.47 mg/dl (0.44-1.00); Estimated GFR > 60 mL/min (>60); GLUCOSE 116 mg/dl (70-220); POTASSIUM 4.5 mmol/L (3.5-5.1); SODIUM 141 mmol/L (135-144); TOTAL PROTEIN 7.3 g/dl (6.1-8.1)
[2018-10-25] MEDS: CEFEPIME 1GM/50 ML (PMX) 50 ML IVPB ×2 (08:56→20:58)
[2018-10-25] MEDS: ACETAMINOPHEN 325 MG TAB PO (08:56)
[2018-10-25] MEDS: ENOXAPARIN 40 MG/0.4 ML SYG SC (08:57)
[2018-10-25 09:33] LABS: ANISOCYTOSIS 1+ (0-0); BAND NEUTROPHILS % (M) 1 % (0-4); BASOPHILS % (M) 1 % (0-2); EOSINOPHILS % (M) 3 % (0-7); LYMPHOCYTES % (M) 28 % (15-51); MONOCYTE #M 0.2 10^3/ul (0.3-0.9); MONOCYTES % (M) 7 % (0-11); PLATELET ESTIMATE NORMAL; SEG NEUT #M 2.3 10^3/ul (1.6-7.5); SEGMENTED NEUTROPHILS (M) % 60 % (39-77); SMUDGE%M 72 % (0-0)
[2018-10-25] MEDS: ACCU-CHEK XX ×2 (12:12)
[2018-10-25] MEDS: FAT EMULSION 20% 250 ML IV (15:38)
[2018-10-25] MEDS: ATORVASTATIN 20 MG TAB PO (21:02)
[2018-10-26] MEDS: ACCU-CHEK XX ×3 (00:04→23:54)
[2018-10-26] MEDS: ACETAMINOPHEN 325 MG TAB PO ×2 (04:19→21:20)
[2018-10-26] MEDS: metroNIDAZOLE 500 MG/NS (PMX) 100 ML IVPB ×3 (06:12→22:14)
[2018-10-26 06:34] LABS: WHITE BLOOD COUNT 4.1 10^3/ul (4.8-10.8)
[2018-10-26 06:34] LABS: HEMATOCRIT 35.7 % (37.0-47.0); HEMOGLOBIN 11.4 g/dl (12.0-16.0); MEAN CORPUSCULAR HEMOGLOBIN 26.6 pg (29.0-33.0); MEAN CORPUSCULAR HGB CONC 31.9 g/dl (32.0-37.0); MEAN CORPUSCULAR VOLUME 83.4 fl (82.0-101.0); MEAN PLATELET VOLUME 9.6 fl (7.4-10.4); PLATELET COUNT 320 10^3/UL (140-415); RED BLOOD COUNT 4.28 10^6/ul (4.20-5.40); RED CELL DISTRIBUTION WIDTH 14.5 % (11.5-14.5)
[2018-10-26 06:48] LABS: ADD MAN DIFF? YES; POSITIVE DIFF @See below
[2018-10-26 07:00] LABS: ALANINE AMINOTRANSFERASE 30 IU/L (13-69); ALBUMIN 3.4 g/dl (3.3-4.9); ALBUMIN/GLOBULIN RATIO 0.87; ALKALINE PHOSPHATASE 75 IU/L (42-121); ANION GAP 9 (5-13); ASPARTATE AMINO TRANSFERASE 43 IU/L (15-46); BILIRUBIN,INDIRECT 0.2 mg/dl (0-1.1); BILIRUBIN,TOTAL 0.2 mg/dl (0.2-1.3); BLOOD UREA NITROGEN 14 mg/dl (7-20); CALCIUM 9.6 mg/dl (8.4-10.2); CARBON DIOXIDE 25 mmol/L (21-31); CHLORIDE 107 mmol/L (97-110); CREATININE 0.54 mg/dl (0.44-1.00); Estimated GFR > 60 mL/min (>60); GLUCOSE 120 mg/dl (70-220); POTASSIUM 4.7 mmol/L (3.5-5.1); SODIUM 141 mmol/L (135-144); TOTAL PROTEIN 7.3 g/dl (6.1-8.1)
[2018-10-26 07:02] LABS: MAGNESIUM 1.9 mg/dl (1.7-2.5)
[2018-10-26 07:02] LABS: PHOSPHORUS 3.9 mg/dl (2.5-4.9)
[2018-10-26] MEDS: TPN 1,000 ML IV ×2 (08:21→22:16)
[2018-10-26] MEDS: CEFEPIME 1GM/50 ML (PMX) 50 ML IVPB ×2 (08:23→21:20)
[2018-10-26] MEDS: ENOXAPARIN 40 MG/0.4 ML SYG SC (08:23)
[2018-10-26 09:59] LABS: ANISOCYTOSIS 1+ (0-0); BAND NEUTROPHILS % (M) 2 % (0-4); BASOPHILS % (M) 2 % (0-2); EOSINOPHILS % (M) 3 % (0-7); ERYTHROBLAST% (NRBC) (M) 1 % (0-0); GIANT THROMBO% (M) 7 % (0-0); LYMPHOCYTES #M 1.1 10^3/ul (0.8-2.9); LYMPHOCYTES % (M) 29 % (15-51); MICROCYTOSIS 1+ (0-0); MONOCYTE #M 0.2 10^3/ul (0.3-0.9); MONOCYTES % (M) 6 % (0-11); PLATELET ESTIMATE NORMAL; POLYCHROMASIA 1+ (0-0); RBC MORPHOLOGY COMMENT @See below; SEG NEUT #M 2.4 10^3/ul (1.6-7.5); SEGMENTED NEUTROPHILS (M) % 58 % (39-77); SMUDGE%M 23 % (0-0); WBC MORPHOLOGY COMMENT @See below
[2018-10-26] MEDS: FAT EMULSION 20% 250 ML IV (16:01)
[2018-10-26] MEDS: ATORVASTATIN 20 MG TAB PO (21:20)
[2018-10-27] MEDS: metroNIDAZOLE 500 MG/NS (PMX) 100 ML IVPB ×3 (05:29→22:25)
[2018-10-27] MEDS: ACETAMINOPHEN 325 MG TAB PO ×3 (05:34→17:46)
[2018-10-27 06:38] LABS: ADD MAN DIFF? NO
[2018-10-27 06:42] LABS: WHITE BLOOD COUNT 4.5 10^3/ul (4.8-10.8)
[2018-10-27 06:42] LABS: BASOPHILS % 0.9 % (0.0-2.0); EOSINOPHILS # 0.1 10^3/ul (0.0-0.5); EOSINOPHILS % 2.6 % (0.0-7.0); HEMATOCRIT 37.2 % (37.0-47.0); LYMPHOCYTES # 1.4 10^3/ul (0.8-2.9); MEAN CORPUSCULAR HEMOGLOBIN 26.5 pg (29.0-33.0); MEAN CORPUSCULAR HGB CONC 32.3 g/dl (32.0-37.0); MEAN CORPUSCULAR VOLUME 82.1 fl (82.0-101.0); MEAN PLATELET VOLUME 9.7 fl (7.4-10.4); MONOCYTE # 0.5 10^3/ul (0.3-0.9); MONOCYTES % 10.8 % (0.0-11.0); NEUTROPHIL # 2.5 10^3/ul (1.6-7.5); NEUTROPHILS % 55.3 % (39.0-77.0); PLATELET COUNT 331 10^3/UL (140-415); RED BLOOD COUNT 4.53 10^6/ul (4.20-5.40); RED CELL DISTRIBUTION WIDTH 14.6 % (11.5-14.5)
[2018-10-27 07:36] LABS: PHOSPHORUS 3.8 mg/dl (2.5-4.9); TRIGLYCERIDES 206 mg/dl (0-149)
[2018-10-27 07:36] LABS: MAGNESIUM 1.9 mg/dl (1.7-2.5)
[2018-10-27 07:42] LABS: ALANINE AMINOTRANSFERASE 29 IU/L (13-69); ALBUMIN 3.5 g/dl (3.3-4.9); ALBUMIN/GLOBULIN RATIO 0.87; ALKALINE PHOSPHATASE 72 IU/L (42-121); ANION GAP 7 (5-13); ASPARTATE AMINO TRANSFERASE 37 IU/L (15-46); BILIRUBIN,INDIRECT 0.2 mg/dl (0-1.1); BILIRUBIN,TOTAL 0.2 mg/dl (0.2-1.3); BLOOD UREA NITROGEN 13 mg/dl (7-20); CALCIUM 9.5 mg/dl (8.4-10.2); CARBON DIOXIDE 26 mmol/L (21-31); CHLORIDE 107 mmol/L (97-110); CREATININE 0.55 mg/dl (0.44-1.00); Estimated GFR > 60 mL/min (>60); GLUCOSE 115 mg/dl (70-220); POTASSIUM 4.3 mmol/L (3.5-5.1); SODIUM 140 mmol/L (135-144); TOTAL PROTEIN 7.5 g/dl (6.1-8.1)
[2018-10-27] MEDS: CEFEPIME 1GM/50 ML (PMX) 50 ML IVPB ×2 (09:04→20:32)
[2018-10-27] MEDS: ENOXAPARIN 40 MG/0.4 ML SYG SC (09:05)
[2018-10-27] MEDS: TPN 1,000 ML IV (11:48)
[2018-10-27] MEDS: ACCU-CHEK XX (11:59)
[2018-10-27] MEDS: FAT EMULSION 20% 250 ML IV (16:34)
[2018-10-27] MEDS: ATORVASTATIN 20 MG TAB PO (20:32)
[2018-10-28] MEDS: ACCU-CHEK XX ×3 (00:52→23:59)
[2018-10-28] MEDS: TPN 1,000 ML IV ×2 (00:53→15:50)
[2018-10-28] MEDS: metroNIDAZOLE 500 MG/NS (PMX) 100 ML IVPB ×3 (05:47→21:40)
[2018-10-28 06:05] LABS: ADD MAN DIFF? NO
[2018-10-28 06:12] LABS: WHITE BLOOD COUNT 3.8 10^3/ul (4.8-10.8)
[2018-10-28 06:12] LABS: BASOPHIL # 0.1 10^3/ul (0.0-0.1); BASOPHILS % 1.3 % (0.0-2.0); EOSINOPHILS # 0.1 10^3/ul (0.0-0.5); EOSINOPHILS % 3.1 % (0.0-7.0); HEMATOCRIT 37.9 % (37.0-47.0); LYMPHOCYTES # 1.4 10^3/ul (0.8-2.9); LYMPHOCYTES % 35.4 % (15.0-51.0); MEAN CORPUSCULAR HGB CONC 31.7 g/dl (32.0-37.0); MEAN CORPUSCULAR VOLUME 82.2 fl (82.0-101.0); MEAN PLATELET VOLUME 10.2 fl (7.4-10.4); MONOCYTE # 0.5 10^3/ul (0.3-0.9); MONOCYTES % 11.8 % (0.0-11.0); NEUTROPHIL # 1.8 10^3/ul (1.6-7.5); NEUTROPHILS % 47.9 % (39.0-77.0); PLATELET COUNT 314 10^3/UL (140-415); RED BLOOD COUNT 4.61 10^6/ul (4.20-5.40); RED CELL DISTRIBUTION WIDTH 14.9 % (11.5-14.5)
[2018-10-28 06:36] LABS: PHOSPHORUS 3.8 mg/dl (2.5-4.9)
[2018-10-28 06:42] LABS: ANION GAP 9 (5-13); BLOOD UREA NITROGEN 13 mg/dl (7-20); CARBON DIOXIDE 28 mmol/L (21-31); CHLORIDE 106 mmol/L (97-110); CREATININE 0.57 mg/dl (0.44-1.00); Estimated GFR > 60 mL/min (>60); GLUCOSE 113 mg/dl (70-220); POTASSIUM 5.2 mmol/L (3.5-5.1); SODIUM 143 mmol/L (135-144)
[2018-10-28] MEDS: CEFEPIME 1GM/50 ML (PMX) 50 ML IVPB ×2 (09:08→20:09)
[2018-10-28] MEDS: ACETAMINOPHEN 325 MG TAB PO ×2 (09:08→15:50)
[2018-10-28] MEDS: ENOXAPARIN 40 MG/0.4 ML SYG SC (09:11)
[2018-10-28] MEDS: FAT EMULSION 20% 250 ML IV (15:50)
[2018-10-28] MEDS: ATORVASTATIN 20 MG TAB PO (20:03)
[2018-10-29] MEDS: TPN 1,000 ML IV ×3 (01:50→19:59)
[2018-10-29] MEDS: metroNIDAZOLE 500 MG/NS (PMX) 100 ML IVPB ×3 (05:37→20:57)
[2018-10-29 06:15] LABS: ADD MAN DIFF? NO
[2018-10-29 06:20] LABS: BASOPHILS % 0.9 % (0.0-2.0); EOSINOPHILS # 0.1 10^3/ul (0.0-0.5); EOSINOPHILS % 2.4 % (0.0-7.0); HEMATOCRIT 35.9 % (37.0-47.0); HEMOGLOBIN 11.5 g/dl (12.0-16.0); LYMPHOCYTES # 1.5 10^3/ul (0.8-2.9); LYMPHOCYTES % 32.4 % (15.0-51.0); MEAN CORPUSCULAR HEMOGLOBIN 26.6 pg (29.0-33.0); MEAN CORPUSCULAR VOLUME 83.1 fl (82.0-101.0); MEAN PLATELET VOLUME 10.4 fl (7.4-10.4); MONOCYTE # 0.4 10^3/ul (0.3-0.9); MONOCYTES % 8.1 % (0.0-11.0); NEUTROPHIL # 2.5 10^3/ul (1.6-7.5); NEUTROPHILS % 55.5 % (39.0-77.0); PLATELET COUNT 280 10^3/UL (140-415); RED BLOOD COUNT 4.32 10^6/ul (4.20-5.40); RED CELL DISTRIBUTION WIDTH 14.7 % (11.5-14.5)
[2018-10-29 06:20] LABS: WHITE BLOOD COUNT 4.5 10^3/ul (4.8-10.8)
[2018-10-29 06:55] LABS: ANION GAP 6 (5-13); BLOOD UREA NITROGEN 14 mg/dl (7-20); CALCIUM 9.4 mg/dl (8.4-10.2); CARBON DIOXIDE 25 mmol/L (21-31); CHLORIDE 109 mmol/L (97-110); Estimated GFR > 60 mL/min (>60); GLUCOSE 104 mg/dl (70-220); POTASSIUM 4.4 mmol/L (3.5-5.1); SODIUM 140 mmol/L (135-144)
[2018-10-29 06:58] LABS: MAGNESIUM 1.8 mg/dl (1.7-2.5)
[2018-10-29 06:58] LABS: PHOSPHORUS 3.8 mg/dl (2.5-4.9)
[2018-10-29] MEDS: CEFEPIME 1GM/50 ML (PMX) 50 ML IVPB ×2 (08:09→20:00)
[2018-10-29] MEDS: ENOXAPARIN 40 MG/0.4 ML SYG SC (08:11)
[2018-10-29] MEDS: ACCU-CHEK XX (12:00)
[2018-10-29] MEDS: FAT EMULSION 20% 250 ML IV (16:31)
[2018-10-29] MEDS: ATORVASTATIN 20 MG TAB PO (20:00)
[2018-10-30] MEDS: ACCU-CHEK XX ×2 (00:47→12:00)
[2018-10-30] MEDS: metroNIDAZOLE 500 MG/NS (PMX) 100 ML IVPB ×3 (05:22→21:57)
[2018-10-30 06:22] LABS: ADD MAN DIFF? NO
[2018-10-30 06:34] LABS: BASOPHILS % 0.8 % (0.0-2.0); EOSINOPHILS # 0.1 10^3/ul (0.0-0.5); EOSINOPHILS % 3.1 % (0.0-7.0); HEMATOCRIT 34.5 % (37.0-47.0); HEMOGLOBIN 11.4 g/dl (12.0-16.0); LYMPHOCYTES # 1.3 10^3/ul (0.8-2.9); LYMPHOCYTES % 37.3 % (15.0-51.0); MEAN CORPUSCULAR HEMOGLOBIN 26.9 pg (29.0-33.0); MEAN CORPUSCULAR VOLUME 81.4 fl (82.0-101.0); MEAN PLATELET VOLUME 10.3 fl (7.4-10.4); MONOCYTE # 0.4 10^3/ul (0.3-0.9); MONOCYTES % 10.4 % (0.0-11.0); NEUTROPHIL # 1.7 10^3/ul (1.6-7.5); NEUTROPHILS % 48.1 % (39.0-77.0); PLATELET COUNT 233 10^3/UL (140-415); RED BLOOD COUNT 4.24 10^6/ul (4.20-5.40); RED CELL DISTRIBUTION WIDTH 15.1 % (11.5-14.5)
[2018-10-30 06:34] LABS: WHITE BLOOD COUNT 3.6 10^3/ul (4.8-10.8)
[2018-10-30 07:09] LABS: ANION GAP 8 (5-13); BLOOD UREA NITROGEN 12 mg/dl (7-20); CALCIUM 9.2 mg/dl (8.4-10.2); CARBON DIOXIDE 23 mmol/L (21-31); CHLORIDE 110 mmol/L (97-110); CREATININE 0.45 mg/dl (0.44-1.00); Estimated GFR > 60 mL/min (>60); GLUCOSE 116 mg/dl (70-220); POTASSIUM 3.9 mmol/L (3.5-5.1); SODIUM 141 mmol/L (135-144)
[2018-10-30 07:17] LABS: PHOSPHORUS 3.9 mg/dl (2.5-4.9)
[2018-10-30 07:17] LABS: MAGNESIUM 1.7 mg/dl (1.7-2.5)
[2018-10-30] MEDS: CEFEPIME 1GM/50 ML (PMX) 50 ML IVPB ×2 (08:24→20:44)
[2018-10-30] MEDS: ENOXAPARIN 40 MG/0.4 ML SYG SC (08:25)
[2018-10-30] MEDS: ACETAMINOPHEN 325 MG TAB PO ×3 (08:35→22:44)
[2018-10-30] MEDS: TPN 1,000 ML IV (12:31)
[2018-10-30] MEDS: FAT EMULSION 20% 250 ML IV (16:28)
[2018-10-30] MEDS: ATORVASTATIN 20 MG TAB PO (20:44)
[2018-10-31] MEDS: TPN 1,000 ML IV ×2 (02:09→18:02)
[2018-10-31] MEDS: metroNIDAZOLE 500 MG/NS (PMX) 100 ML IVPB ×3 (06:02→22:09)
[2018-10-31 08:41] LABS: ADD MAN DIFF? NO
[2018-10-31 08:44] LABS: BASOPHILS % 0.8 % (0.0-2.0); EOSINOPHILS # 0.1 10^3/ul (0.0-0.5); EOSINOPHILS % 2.8 % (0.0-7.0); HEMATOCRIT 34.6 % (37.0-47.0); HEMOGLOBIN 11.5 g/dl (12.0-16.0); LYMPHOCYTES # 1.3 10^3/ul (0.8-2.9); LYMPHOCYTES % 35.5 % (15.0-51.0); MEAN CORPUSCULAR HEMOGLOBIN 27.1 pg (29.0-33.0); MEAN CORPUSCULAR HGB CONC 33.2 g/dl (32.0-37.0); MEAN CORPUSCULAR VOLUME 81.6 fl (82.0-101.0); MEAN PLATELET VOLUME 10.8 fl (7.4-10.4); MONOCYTE # 0.3 10^3/ul (0.3-0.9); MONOCYTES % 8.6 % (0.0-11.0); NEUTROPHIL # 1.9 10^3/ul (1.6-7.5); NEUTROPHILS % 51.7 % (39.0-77.0); PLATELET COUNT 240 10^3/UL (140-415); RED BLOOD COUNT 4.24 10^6/ul (4.20-5.40); RED CELL DISTRIBUTION WIDTH 15.1 % (11.5-14.5)
[2018-10-31 08:44] LABS: WHITE BLOOD COUNT 3.6 10^3/ul (4.8-10.8)
[2018-10-31 09:09] LABS: ALANINE AMINOTRANSFERASE 29 IU/L (13-69); ALBUMIN 3.4 g/dl (3.3-4.9); ALBUMIN/GLOBULIN RATIO 0.87; ALKALINE PHOSPHATASE 72 IU/L (42-121); ANION GAP 10 (5-13); ASPARTATE AMINO TRANSFERASE 37 IU/L (15-46); BILIRUBIN,INDIRECT 0.3 mg/dl (0-1.1); BILIRUBIN,TOTAL 0.3 mg/dl (0.2-1.3); BLOOD UREA NITROGEN 13 mg/dl (7-20); CALCIUM 9.2 mg/dl (8.4-10.2); CARBON DIOXIDE 23 mmol/L (21-31); CHLORIDE 109 mmol/L (97-110); CREATININE 0.44 mg/dl (0.44-1.00); Estimated GFR > 60 mL/min (>60); GLUCOSE 111 mg/dl (70-220); POTASSIUM 3.8 mmol/L (3.5-5.1); SODIUM 142 mmol/L (135-144); TOTAL PROTEIN 7.3 g/dl (6.1-8.1)
[2018-10-31 09:10] LABS: PHOSPHORUS 3.8 mg/dl (2.5-4.9)
[2018-10-31 09:10] LABS: MAGNESIUM 1.7 mg/dl (1.7-2.5)
[2018-10-31] MEDS: ENOXAPARIN 40 MG/0.4 ML SYG SC (11:43)
[2018-10-31] MEDS: CEFEPIME 1GM/50 ML (PMX) 50 ML IVPB ×2 (11:43→20:30)
[2018-10-31] MEDS: ACCU-CHEK XX ×2 (12:00)
[2018-10-31] MEDS: ACETAMINOPHEN 325 MG TAB PO (18:01)
[2018-10-31] MEDS: FAT EMULSION 20% 250 ML IV (18:02)
[2018-10-31] MEDS: ATORVASTATIN 20 MG TAB PO (20:30)
[2018-11-01] MEDS: metroNIDAZOLE 500 MG/NS (PMX) 100 ML IVPB ×3 (06:05→22:08)
[2018-11-01] MEDS: TPN 1,000 ML IV ×2 (07:32→21:20)
[2018-11-01 07:42] LABS: ADD MAN DIFF? NO
[2018-11-01 07:48] LABS: WHITE BLOOD COUNT 3.4 10^3/ul (4.8-10.8)
[2018-11-01 07:48] LABS: BASOPHILS % 1.2 % (0.0-2.0); EOSINOPHILS # 0.2 10^3/ul (0.0-0.5); EOSINOPHILS % 4.4 % (0.0-7.0); HEMATOCRIT 34.7 % (37.0-47.0); HEMOGLOBIN 11.5 g/dl (12.0-16.0); LYMPHOCYTES # 1.4 10^3/ul (0.8-2.9); LYMPHOCYTES % 41.9 % (15.0-51.0); MEAN CORPUSCULAR HEMOGLOBIN 27.1 pg (29.0-33.0); MEAN CORPUSCULAR HGB CONC 33.1 g/dl (32.0-37.0); MEAN CORPUSCULAR VOLUME 81.8 fl (82.0-101.0); MEAN PLATELET VOLUME 11.1 fl (7.4-10.4); MONOCYTE # 0.3 10^3/ul (0.3-0.9); NEUTROPHIL # 1.5 10^3/ul (1.6-7.5); NEUTROPHILS % 44.2 % (39.0-77.0); PLATELET COUNT 225 10^3/UL (140-415); RED BLOOD COUNT 4.24 10^6/ul (4.20-5.40); RED CELL DISTRIBUTION WIDTH 15.3 % (11.5-14.5)
[2018-11-01 08:06] LABS: PHOSPHORUS 3.7 mg/dl (2.5-4.9)
[2018-11-01 08:06] LABS: MAGNESIUM 1.7 mg/dl (1.7-2.5)
[2018-11-01 08:15] LABS: ALANINE AMINOTRANSFERASE 24 IU/L (13-69); ALBUMIN 3.4 g/dl (3.3-4.9); ALBUMIN/GLOBULIN RATIO 0.89; ALKALINE PHOSPHATASE 70 IU/L (42-121); ANION GAP 10 (5-13); ASPARTATE AMINO TRANSFERASE 29 IU/L (15-46); BILIRUBIN,INDIRECT 0.4 mg/dl (0-1.1); BILIRUBIN,TOTAL 0.4 mg/dl (0.2-1.3); BLOOD UREA NITROGEN 12 mg/dl (7-20); CALCIUM 9.2 mg/dl (8.4-10.2); CARBON DIOXIDE 23 mmol/L (21-31); CHLORIDE 109 mmol/L (97-110); CREATININE 0.45 mg/dl (0.44-1.00); Estimated GFR > 60 mL/min (>60); GLUCOSE 110 mg/dl (70-220); POTASSIUM 3.8 mmol/L (3.5-5.1); SODIUM 142 mmol/L (135-144); TOTAL PROTEIN 7.2 g/dl (6.1-8.1)
[2018-11-01] MEDS: CEFEPIME 1GM/50 ML (PMX) 50 ML IVPB ×2 (08:40→21:20)
[2018-11-01] MEDS: ENOXAPARIN 40 MG/0.4 ML SYG SC (08:42)
[2018-11-01] MEDS: ACCU-CHEK XX ×2 (11:51)
[2018-11-01] MEDS ORDERED: FAT EMULSION 20% 500 ML IV (16:00)
[2018-11-01] MEDS ORDERED: FAT EMULSION 20% 250 ML IV (16:00)
[2018-11-01] MEDS: FAT EMULSION 20% 500 ML IV (16:30)
[2018-11-01] MEDS: ATORVASTATIN 20 MG TAB PO (21:21)
[2018-11-02] MEDS: metroNIDAZOLE 500 MG/NS (PMX) 100 ML IVPB ×2 (05:52→14:04)
[2018-11-02 06:15] LABS: ADD MAN DIFF? NO
[2018-11-02 06:17] LABS: BASOPHILS % 1.1 % (0.0-2.0); EOSINOPHILS # 0.2 10^3/ul (0.0-0.5); EOSINOPHILS % 5.2 % (0.0-7.0); HEMATOCRIT 36.3 % (37.0-47.0); HEMOGLOBIN 12.1 g/dl (12.0-16.0); LYMPHOCYTES # 1.5 10^3/ul (0.8-2.9); LYMPHOCYTES % 42.1 % (15.0-51.0); MEAN CORPUSCULAR HEMOGLOBIN 27.2 pg (29.0-33.0); MEAN CORPUSCULAR HGB CONC 33.3 g/dl (32.0-37.0); MEAN CORPUSCULAR VOLUME 81.6 fl (82.0-101.0); MEAN PLATELET VOLUME 10.7 fl (7.4-10.4); MONOCYTE # 0.4 10^3/ul (0.3-0.9); MONOCYTES % 9.6 % (0.0-11.0); NEUTROPHIL # 1.5 10^3/ul (1.6-7.5); NEUTROPHILS % 41.7 % (39.0-77.0); PLATELET COUNT 219 10^3/UL (140-415); RED BLOOD COUNT 4.45 10^6/ul (4.20-5.40); RED CELL DISTRIBUTION WIDTH 15.5 % (11.5-14.5)
[2018-11-02 06:17] LABS: WHITE BLOOD COUNT 3.7 10^3/ul (4.8-10.8)
[2018-11-02 06:43] LABS: PHOSPHORUS 4.1 mg/dl (2.5-4.9)
[2018-11-02 06:43] LABS: MAGNESIUM 1.8 mg/dl (1.7-2.5)
[2018-11-02 06:44] LABS: ALANINE AMINOTRANSFERASE 25 IU/L (13-69); ALBUMIN 3.6 g/dl (3.3-4.9); ALBUMIN/GLOBULIN RATIO 0.94; ALKALINE PHOSPHATASE 69 IU/L (42-121); ANION GAP 9 (5-13); ASPARTATE AMINO TRANSFERASE 34 IU/L (15-46); BILIRUBIN,INDIRECT 0.3 mg/dl (0-1.1); BILIRUBIN,TOTAL 0.3 mg/dl (0.2-1.3); BLOOD UREA NITROGEN 12 mg/dl (7-20); CALCIUM 9.6 mg/dl (8.4-10.2); CARBON DIOXIDE 24 mmol/L (21-31); CHLORIDE 108 mmol/L (97-110); CREATININE 0.46 mg/dl (0.44-1.00); Estimated GFR > 60 mL/min (>60); GLUCOSE 115 mg/dl (70-220); SODIUM 141 mmol/L (135-144); TOTAL PROTEIN 7.4 g/dl (6.1-8.1)
[2018-11-02] MEDS: CEFEPIME 1GM/50 ML (PMX) 50 ML IVPB (08:30)
[2018-11-02] MEDS: ENOXAPARIN 40 MG/0.4 ML SYG SC (08:31)
[2018-11-02] MEDS: TPN 1,000 ML IV (11:21)
[2018-11-02] MEDS: ACCU-CHEK XX ×2 (11:25)
[2018-11-02] MEDS: FAT EMULSION 20% 500 ML IV (16:00)
[2018-11-02] MEDS ORDERED: metroNIDAZOLE 500 MG TAB (21:00)
[2018-11-02] MEDS: ATORVASTATIN 20 MG TAB PO (21:23)
[2018-11-02] MEDS: FAMOTIDINE 20 MG TAB PO (21:23)
[2018-11-02] MEDS: metroNIDAZOLE 500 MG TAB PO (21:23)
[2018-11-03] MEDS: TPN 1,000 ML IV ×2 (00:41→15:19)
[2018-11-03] MEDS ORDERED: CIPROFLOXACIN 500 MG TAB (04:13)
[2018-11-03] MEDS: metroNIDAZOLE 500 MG TAB PO ×3 (05:58→21:30)
[2018-11-03] MEDS: CIPROFLOXACIN 500 MG TAB PO ×2 (05:58→17:17)
[2018-11-03 07:37] LABS: INR 0.94; PROTIME 12.7 Sec (11.9-14.9)
[2018-11-03 08:02] LABS: ANION GAP 10 (5-13); BLOOD UREA NITROGEN 12 mg/dl (7-20); CALCIUM 9.8 mg/dl (8.4-10.2); CARBON DIOXIDE 22 mmol/L (21-31); CHLORIDE 107 mmol/L (97-110); CREATININE 0.48 mg/dl (0.44-1.00); Estimated GFR > 60 mL/min (>60); GLUCOSE 114 mg/dl (70-220); MAGNESIUM 1.7 mg/dl (1.7-2.5); PHOSPHORUS 4.2 mg/dl (2.5-4.9); POTASSIUM 3.8 mmol/L (3.5-5.1); SODIUM 139 mmol/L (135-144)
[2018-11-03] MEDS: ENOXAPARIN 40 MG/0.4 ML SYG SC (08:48)
[2018-11-03] MEDS: ACCU-CHEK XX ×2 (11:26)
[2018-11-03] MEDS: LIDOCAINE 1% (MPF) 5 ML VIAL SC (12:00)
[2018-11-03] MEDS: FAT EMULSION 20% 500 ML IV (15:50)
[2018-11-03] MEDS: FAMOTIDINE 20 MG TAB PO (21:30)
[2018-11-03] MEDS: ATORVASTATIN 20 MG TAB PO (21:30)
[2018-11-04] MEDS: TPN 1,000 ML IV (05:34)
[2018-11-04] MEDS: CIPROFLOXACIN 500 MG TAB PO ×2 (05:45→17:22)
[2018-11-04] MEDS: metroNIDAZOLE 500 MG TAB PO ×2 (05:45→13:55)
[2018-11-04] MEDS: ENOXAPARIN 40 MG/0.4 ML SYG SC (08:18)
[2018-11-04] MEDS: ACCU-CHEK XX ×2 (11:58)
[2018-11-04] MEDS: FAT EMULSION 20% 500 ML IV (15:50)
[2018-11-04] MEDS: FAMOTIDINE 20 MG TAB PO (21:00)
[2018-11-04] MEDS: ATORVASTATIN 20 MG TAB PO (21:00)
[2018-11-05] MEDS ORDERED: TPN 1,000 ML IV
== END 2018-11-04 21:52 | disposition home health service (06) | DRG 392 ==
LOC: E/R 12:03 → PP2 14:24
PROVIDERS: Internal Medicine
PROC: 02HV33Z Insertion of Infusion Device into Superior Vena Cava, Percutaneous Approach (ICD-10-PCS; principal; 2018-11-03)
DX: K57.20 Diverticulitis of large intestine with perforation and abscess without bleeding (principal); E46 Unspecified protein-calorie malnutrition; I10 Essential (primary) hypertension; E78.5 Hyperlipidemia, unspecified; M81.0 Age-related osteoporosis without current pathological fracture; D72.819 Decreased white blood cell count, unspecified; D64.9 Anemia, unspecified; R19.7 Diarrhea, unspecified; Z68.25 Body mass index [BMI] 25.0-25.9, adult
CPT/HCPCS: 36415; 36569; 71045; 74176; 76937; 80048; 80053; 80061; 80202; 82378; 82962; 83036; 83690; 83735; 84075; 84100; 84134; 84450; 84460; 84478; 85025; 85610; 85730; 87075; 96374; 96375; 99285-25

== ENCOUNTER 2018-11-29 01:32 | Emergency (ER) | payer BC | END 2018-11-29 04:50 | disposition home or self-care (01) | LOC: FTE 01:32 | DX: T85.698A Other mechanical complication of other specified internal prosthetic devices, implants and grafts, initial encounter (principal); I10 Essential (primary) hypertension; Y82.8 Other medical devices associated with adverse incidents | CPT/HCPCS: 99282 ==